=== PATIENT | female | born 1985 | race Caucasian/White ===

== ENCOUNTER 2020-11-30 11:18 | Emergency (ER) | payer OTHER ==
[~2020-11-30 11:18] MED LIST: Iopamidol 370 76% 100 ML VIAL ONE
[2020-11-30 12:17] LABS: #Basophils 0.1 thou/uL (0.0-0.2); #Eosinphils 0.1 thou/uL (0.0-0.7); #Lymphocytes 1.3 thou/uL (1.20-3.40); #Monocytes 0.4 thou/uL (0.11-0.59); #Neutrophils 4.7 thou/uL (1.40-6.50); %Basophils 0.8 % (0.0-1.0); %Eosinophils 1.4 % (0.0-10.0); %Lymphocytes 19.9 % (21.0-51.0); %Monocytes 6.3 % (0.0-10.0); %Neutrophils 71.5 % (42.0-75.0); Hemoglobin 11.7 g/dL (12.0-16.0); Mean Corpuscular HGB CONC 32.1 g/dL (32.0-36.0); Mean Corpuscular Hemoglobin 26.4 pg (27.0-31.0); Mean Corpuscular Volume 82.3 fL (78.0-98.0); Mean Platelet Volume 6.9 fL (7.4-10.4); Platelet Count 306 thou/uL (130-400); RBC Distribution Width 14.1 % (11.5-14.5); Red Blood Cell (RBC) Count 4.43 mill/uL (4.20-5.40); White Blood Cell (WBC) Count 6.6 thou/uL (4.8-10.8)
[2020-11-30] MEDS ORDERED: Ibuprofen 200 MG TAB ONE (12:29)
[2020-11-30 12:32] LABS: ALT (SGPT) 9 U/L (8-55); AST (SGOT) 9 U/L (5-34); Albumin 4.1 g/dL (3.5-5.0); Alkaline Phosphatase 48 U/L (40-110); Anion Gap 12 mmol/L (10-20); BUN (Urea Nitrogen) 7 mg/dL (7.0-18.7); Bilirubin, Total 0.3 mg/dL (0.2-1.2); Calc. Creatinine Clearance 0 mL/min (70-130); Calcium 9.2 mg/dL (7.8-10.44); Carbon Dioxide 23 mmol/L (22-29); Chloride 111 mmol/L (98-107); Glucose 105 mg/dL (70-105); Lipase 12 U/L (8-78); Potassium 4.7 mmol/L (3.5-5.1); Protein, Total 7.1 g/dL (6.0-8.3); Sodium 141 mmol/L (136-145)
[2020-11-30 12:32] LABS: Bilirubin Negative (Negative); Blood, Urine Large (Negative); Clarity Cloudy (Clear); Glucose, Urine (Dipstick) Negative (Negative); Ketone, Urine Negative (Negative); Leukocyte Negative (Negative); Nitrite Negative (Negative); Protein, Urine (Dipstick) Trace mg/dL (Neg-Trace); Specific Gravity, Urine 1.025 (1.005-1.030); Urobilinogen 0.2 mg/dL (Less than 2); pH, Urine 5.5 (5.0-9.0)
[2020-11-30 12:37] LABS: Bacteria/HPF 1+ HPF (None Seen); Pregnancy Test - Urine (BHCG) Negative (Negative); Pregu Control Background? CLEAR/WHITE (CLR/WHITE); Pregu Control Bar Appear? YES (CONTROL BAR); RBC/HPF Greater than 50 HPF (0-3); Specific Gravity 1.025 (1.002-1.036); Squamous Epithelial 0-3 HPF (0-3)
== END 2020-11-30 14:00 | disposition home or self-care (01) ==
LOC: BURERS 11:18
DX: D25.9 Leiomyoma of uterus, unspecified (principal); K59.00 Constipation, unspecified
CPT/HCPCS: 36415; 74177; 80053; 81003; 81015; 81025; 83605; 83690; 85025; Q9967